=== PATIENT | female | born 1985 | race Caucasian/White ===

== ENCOUNTER 2016-09-24 14:52 | Emergency (ER) | payer OTHER ==
[~2016-09-24] VITALS: Ht 154.9 cm; Wt 109.0 kg
[2016-09-24] MEDS ORDERED: KETOROLAC 30 MG/1 ML ONE (15:23)
[2016-09-24] MEDS ORDERED: ONDANSETRON ODT 4 MG ONE (15:23)
[2016-09-24] MEDS ORDERED: KETOROLAC 60 MG/2 ML IM ONE (15:30)
[2016-09-24] MEDS ORDERED: ONDANSETRON ODT 4 MG PO ONE (15:30)
[2016-09-24 15:49] LABS: BLOOD UREA NITROGEN 12 mg/dL (7-18)
[2016-09-24 18:32] VITALS: BP 147/96
== END 2016-09-24 18:35 | disposition home or self-care (01) ==
LOC: ED 16:19
DX: N20.2 Calculus of kidney with calculus of ureter (principal); J45.909 Unspecified asthma, uncomplicated; Z88.5 Allergy status to narcotic agent
CPT/HCPCS: 36415; 74000; 80048; 81001; 82040; 84703; 85025; 87086; 96372; 99285; J1885; Q0162

== ENCOUNTER 2016-10-12 21:10 | Emergency (ER) | payer OTHER ==
[~2016-10-12] VITALS: Ht 154.9 cm; Wt 110.0 kg
[2016-10-12 21:49] LABS: HEMATOCRIT 46.3 % (34.6-47.8); HEMOGLOBIN 15.5 g/dL (11.7-16.4); WHITE BLOOD COUNT 11.9 x10^3/uL (3.4-10)
[2016-10-12] MEDS ORDERED: TAMS-11 PO (21:53)
[2016-10-12 21:56] LABS: ASPARTATE AMINO TRANSFERASE 17 U/L (15-37); BLOOD UREA NITROGEN 15 mg/dL (7-18)
[2016-10-12 21:59] LABS: HCG UR OBC PASS
[2016-10-12] MEDS ORDERED: SODIUM CHLORIDE 0.9% 1,000ML IVBOLUS ONE (22:00)
[2016-10-12] MEDS ORDERED: ONDANSETRON 2MG/ML, 2ML IVPush ONE (22:00)
[2016-10-12] MEDS ORDERED: ONDANSETRON 2MG/ML, 2ML ONE (22:09)
[2016-10-12] MEDS ORDERED: MORPHINE SULFATE 4 MG/ML, 1ML ONE ×2 (22:09→22:52)
[2016-10-12] MEDS: MORPHINE SULFATE 4 MG/ML, 1ML IVPush PRN ×2 (22:16→23:06)
[2016-10-12 23:07] VITALS: BP 142/79
== END 2016-10-12 23:10 | disposition home or self-care (01) ==
LOC: ED 21:34
DX: N20.1 Calculus of ureter (principal); R10.9 Unspecified abdominal pain; J45.909 Unspecified asthma, uncomplicated; Z87.442 Personal history of urinary calculi
CPT/HCPCS: 36415; 76770; 80053; 81001; 81025; 83690; 85025; 87086; 96361; 96374; 96375; 96376; 99285; J2405; J7030

== ENCOUNTER 2016-12-03 17:21 | Emergency (ER) | payer SELFPAY ==
[~2016-12-03] VITALS: Ht 156.2 cm; Wt 108.6 kg
[~2016-12-03 17:21] MED LIST: TAMS-11 PO
[2016-12-03] MEDS ORDERED: SODIUM CHLORIDE FLUSH 10ML SYR IVF ONE (18:00)
[2016-12-03 18:18] LABS: PATH.CAST-FLAG NOT PRESENT; SPERM-FLAG NOT PRESENT; SRC-FLAG NOT PRESENT; XTAL-FLAG NOT PRESENT; YLC-FLAG NOT PRESENT
[2016-12-03 18:29] LABS: HEMATOCRIT 45.7 % (34.6-47.8); HEMOGLOBIN 15.5 g/dL (11.7-16.4); WHITE BLOOD COUNT 12.1 x10^3/uL (3.4-10)
[2016-12-03 18:42] LABS: ASPARTATE AMINO TRANSFERASE 18 U/L (15-37); BLOOD UREA NITROGEN 15 mg/dL (7-18)
[2016-12-03] MEDS ORDERED: MORPHINE SULFATE 4 MG/ML, 1ML ONE (19:55)
[2016-12-03] MEDS ORDERED: KETOROLAC 30 MG/1 ML ONE (19:55)
[2016-12-03] MEDS ORDERED: ONDANSETRON 2MG/ML, 2ML ONE (19:55)
[2016-12-03] MEDS ORDERED: MORPHINE SULFATE 4 MG/ML, 1ML IVPush PRN (20:00)
[2016-12-03] MEDS ORDERED: KETOROLAC 30 MG/1 ML IVPush ONE (20:00)
[2016-12-03] MEDS ORDERED: ONDANSETRON 2MG/ML, 2ML IVPush ONE (20:00)
[2016-12-03 20:05] VITALS: BP 156/96
== END 2016-12-03 20:45 | disposition home or self-care (01) ==
LOC: ED 20:14
DX: N13.2 Hydronephrosis with renal and ureteral calculous obstruction (principal); J45.909 Unspecified asthma, uncomplicated; F17.200 Nicotine dependence, unspecified, uncomplicated; Z87.442 Personal history of urinary calculi
CPT/HCPCS: 36415; 74176; 80053; 81001; 84703; 85025; 87086; 96374; 96375; 99285; J1885; J2405